=== PATIENT | male | born 1995 | race African-American/Black ===

== ENCOUNTER 2020-09-04 14:12 | Emergency (ER) | payer BC, SELFPAY ==
--- NOTE | ~2020-09-04 | XR_ITS ---
EXAMINATION: XR tibia fibula LT 2V EXAM DATE: 09/04/2020 15:42 INDICATION: Initial encounter following injury, with pain of the left calf. TECHNIQUE: Left tibia/fibula frontal and lateral projections obtained and reviewed. Correlation is ma de to left ankle obtained earlier same date. FINDINGS: Left tibial and fibular shafts unremarkable. There are no acute fractures or dislocations identified. There is no subcutaneous gas. The soft tissue is unremarkable. There are no radiopaqu e foreign bodies. IMPRESSION: 1. Left tibia fibula exam without acute osseous findings. Reviewed, dictated and finalized at location A.
--- NOTE | ~2020-09-04 | XR_ITS ---
EXAMINATION: XR foot LT min 3V, XR ankle LT min 3V EXAM DATE: 09/04/2020 14:38 INDICATION: Initial encounter following injury, with pain of the left foot, ankle. TECHNIQUE: Left foot dorsoplantar, lateral and oblique projections obtained and reviewed. Left ankle frontal, lateral and oblique projections obtained and reviewed. There is no prior study for compari son. FINDINGS: Left metatarsal bones unremarkable. The left ankle mortise appears intact. There are no acute fractures or dislocations identified. There is no subcutaneous gas. The soft tissue is unrem arkable. There are no radiopaque foreign bodies. IMPRESSION: No acute osseous findings. Reviewed, dictated and finalized at location A. IMPRESSION: No acute osseous findings. IMPRESSION: No acute osseous findings.
[2020-09-04 14:27] VITALS: BP 138/63; PULSE 110; RESP 20; TEMP 36.7; O2SAT 96
--- NOTE | 2020-09-04 15:42 | ED.GENADULT ---
HPI - General Adult General Chief complaint: Extremity Injury, Lower Stated complaint: left foot injury Time Seen by Provider: 09/04/20 15:26 Source: RN notes reviewed History of Present Illness HPI narrative: Patient presents emergency department from home for left leg pain. Patient states that this morning he jumped over a fence and landed awkwardly states that he had a burning pain in his posterior left ankle up into his left calf and has been having pain since that time patient denies any other trauma or injury denies falling or striking his head states he is taking no medication for the pain he denies any numbness or tingling in extremity Related Data Allergies Allergy/AdvReac Type Severity Reaction Status Date / Time No Known Allergies Allergy Verified 09/04/20 16:07 Review of Systems Review of Systems: Narrative: Gen.: Denies fevers or chills Musculoskeletal: See HPI Neuro: Denies numbness, tingling, weakness Skin: Denies rash Endo: Denies DM PMFSH Past Medical History Medical History (Updated 09/04/20 @ 16:30 by Manuel Ibarra DO) Patient denies significant medical history Social History Social History (Updated 09/04/20 @ 15:42 by Manuel Ibarra DO) Smoking status: Current every day smoker Exam Narrative: Exam Narrative: APPEARANCE: No acute distress, nontoxic, resting in bed Eyes: EOMI HEENT: Normocephalic, atraumatic, RESPIRATORY: No respiratory distress MUSCULOSKELETAl: Tender to palpation over the left posterior medial and lateral ankle tenderness along the Achilles heel tenderness up in the left calf no tenderness of the knee with full range of motion dorsalis pedis pulse 2+, neurovascular intact, positive Hernandez test with no movement of the foot NEURO: Awake and alert. Following commands, speech normal, no focal deficits SKIN:: Warm, dry. Normal Color no rash or lesions Course Course Emergency Course: Discussed with Dr. Cantu's PA Dylan agrees with plan for splinting and follow-up as an outpatient Discussed with patient results of workup and diagnosis. Discussed need for follow-up with primary care, proper use of medication, and reasons to return to the emergency department. Patient understands and agrees to current treatment plan Vital Signs Vital signs: Vital Signs Temperature 98.0 F 09/04/20 14:27 Pulse Rate 110 H 09/04/20 14:27 Respiratory Rate 20 09/04/20 14:27 Blood Pressure 138/63 09/04/20 14:27 Pulse Oximetry 96 09/04/20 14:27 Temperature 98.0 F 09/04/20 14:27 Pulse Rate 110 H 09/04/20 14:27 Respiratory Rate 20 09/04/20 14:27 Blood Pressure 138/63 09/04/20 14:27 Pulse Oximetry 96 09/04/20 14:27 Procedures Orthopedic Splinting/Casting Injury #1: Side: left Splint: customized in ED OCL: short leg Pre-Procedure Neuro Vascular Exam: normal Post-Procedure Neuro Vascular Exam: normal Other Orthopedic Equipment: crutches Medical Decision Making Vital Signs Vital Signs: Vital Signs Temperature 98.0 F 09/04/20 14:27 Pulse Rate 110 H 09/04/20 14:27 Respiratory Rate 20 09/04/20 14:27 Blood Pressure 138/63 09/04/20 14:27 Pulse Oximetry 96 09/04/20 14:27 Temperature 98.0 F 09/04/20 14:27 Pulse Rate 110 H 09/04/20 14:27 Respiratory Rate 09/04/20 14:27 Blood Pressure 138/63 09/04/20 14:27 Pulse Oximetry 96 09/04/20 14:27 Imaging Data Radiologist's impression: ITS Impressions Ankle X-Ray 09/04/20 14:43 IMPRESSION: No acute osseous findings. Foot X-Ray 09/04/20 14:43 IMPRESSION: No acute osseous findings. Tibia/Fibula X-Ray 09/04/20 15:45 IMPRESSION: 1. Left tibia fibula exam without acute osseous findings. Discharge Plan Discharge Clinical Impression: Rupture of left Achilles tendon Patient Disposition: Home, Self-Care Condition: Stable Instructions: Antibiotic Form, Achilles Tendon Rupture (ED) Ad
[2020-09-04] MEDS: IBUPROFEN 600 MG TABLET PO (16:12)
[2020-09-04] MEDS: HYDROcodone/acetaminophen (*CRX) 5-325 MG TABLET 1 TAB PO (16:14)
--- NOTE | 2020-09-22 21:10 | PC.NURSE ---
It was inadvertently charted that the patient has a short arm posterior splint placed when pt actually had a short leg posterior splint placed by ED techs on 09/04/20 @ 1632.
== END 2020-09-04 16:46 | disposition home or self-care (01) ==
LOC: ANHED 16:42
PROVIDERS: Emergency Provider Emergency Medicine
DX: S86.012A Strain of left Achilles tendon, initial encounter (principal); F17.200 Nicotine dependence, unspecified, uncomplicated; X50.9XXA Other and unspecified overexertion or strenuous movements or postures, initial encounter
CPT/HCPCS: 29515; 73590; 73610; 73630; 99284; A9270

== ENCOUNTER 2021-09-14 00:10 | Emergency (ER) | payer BC, SELFPAY ==
[2021-09-14 00:14] VITALS: BP 137/89; PULSE 95; RESP 18; TEMP 36.2; O2SAT 98
--- NOTE | 2021-09-14 01:01 | ED.URI ---
HPI - URI/Sore Throat General Chief Complaint: Upper Respiratory Infection Stated Complaint: URI Symptoms Time Seen by Provider: 09/14/21 01:00 History of Present Illness HPI Narrative: Pt c/o cough, productive, yellowish-greenish sputum, nasal congestin, fatigue, ear ache, and sorethroat x 1 week. Pt states he was seen at an urgent care 1 week ago, tested negative for COVID, was given amoxicillin. Patient denies any fever, chest pain, shortness of breath, abdominal pain, nausea, vomiting or diarrhea. Related Data Home Medications Medication Instructions Recorded Confirmed dextromethorphan-guaifenesin 10 ml PO 09/14/21 mg-200 mg/15 mL oral liquid Allergies Allergy/AdvReac Type Severity Reaction Status Date / Time No Known Allergies Allergy Verified 09/14/21 02:03 Review of Systems Review of Systems: Per HPI All systems reviewed & are unremarkable except as noted in HPI and below PMFSH Past Medical History Medical History Patient denies significant medical history Family History Family History Mother Patient's mother is in good health Father Patient's father is in good health Other Diabetes mellitus Hypertension Social History Social History Smoking status: Current every day smoker Exam Const: General: cooperative, healthy appearing, comfortable, no acute distress, well developed, alert and awake; No confusion Orientation/consciousness: oriented to person, oriented to place, oriented to time, patient oriented x3 and No confusion Limitations: no limitations HENMT: Head: normal to inspection, normocephalic and atraumatic Ears: hearing grossly normal bilaterally, TM normal on the right and TM normal on the left General nose exam: Normal external nose present, Normal nares present and No nasal discharge present Face and sinus: normal facial exam Mouth: Yes Normal oral and palatal mucosa present, Yes lip normal, Yes tongue normal and Yes oropharynx normal Throat: posterior oropharynx normal, tonsils normal and uvula midline Eyes: General: appearance normal, both eyes and all related structures Pupils: Equal, round and reactive pupils present EOM: EOMs intact bilaterally Neck: Neck: normal visual inspection, full ROM, no lymphadenopathy and no meningeal signs Chest: Chest palpation & inspection: normal inspection of the chest Resp: Effort & Inspection: normal respiratory effort, able to speak in complete sentences, no respiratory distress and not tachypneic Auscultation: clear to auscultation bilaterally, no crackles, no rales, no rhonchi and no wheezes Cardio: Rate: regular rate Rhythm: regular rhythm GI: Inspection: normal to inspection GI Palp: No abdominal tenderness, Yes Soft to palpation, No Tenderness to palpation present (GI), No Guarding due to palpation present (GI), No Rigid due to palpation and No Rebound tenderness present Auscultation: normal bowel sounds : General: Yes no CVA tenderness Back/Spine/Pelvis: Back: no CVA tenderness Skin: General skin exam: normal color, no rashes or lesions noted, elasticity normal and turgor normal Neuro: General: oriented to person, oriented to place, oriented to time, patient oriented x3, tone normal, moves all extremities, Normal light touch and pain sensation, no meningeal signs, no focal motor deficits, CN's II-XI intact bilaterally and No confusion Cranial nerves: Yes Equal, round and reactive pupils present Speech: No Abnormal speech present Sensory Exam: No Sensory deficit (Neuro) Extrem: General: normal to inspection, full ROM and capillary refill normal Psych: Appearance: grossly normal and well kempt Mental Status: mental status grossly normal Speech and movement: Normal speech and movement present Affect: normal affect Attitude: cooperative Thought proces
[2021-09-14 01:35] VITALS: O2SAT 98
[2021-09-14 03:18] VITALS: BP 135/93; PULSE 83; RESP 18; O2SAT 100
[2021-09-14 04:34] LABS: Influenza A QL RT-PCR Negative (Negative); Influenza B QL RT-PCR Negative (Negative); SARS-CoV-2 RNA PCR Negative
[2021-09-14 04:40] VITALS: BP 135/86; PULSE 83; RESP 18; O2SAT 100
== END 2021-09-14 04:40 | disposition home or self-care (01) ==
PROVIDERS: Emergency Provider Emergency Medicine
DX: J06.9 Acute upper respiratory infection, unspecified (principal); F17.200 Nicotine dependence, unspecified, uncomplicated; Z20.822 Contact with and (suspected) exposure to COVID-19
CPT/HCPCS: 87502; 99283; C9803; U0003; U0005

== ENCOUNTER 2024-09-07 22:26 | Emergency (ER) | payer SELFPAY ==
--- NOTE | ~2024-09-07 | XR_ITS ---
EXAMINATION: XR chest 1V portable Exam Date/Time: 09/07/2024 23:05 CDT HISTORY: bronchitis Comparison: None. RESULT: Lines, tubes, and devices: None. Lungs and pleura: Clear. Cardiomediastinal silhouette: Normal. Other: No acute osseous or upper abdominal finding. IMPRESSION: No acute cardiopulmonary process. Reviewed, dictated and finalized at location K.
--- OUTSIDE RECORDS SUMMARY | 2024-09-07 22:28 | XMS_ITS | Clinical Summary ---
Author Organization [facility] Address [address] [place] [id number] Care Team Providers Care Portfolio Consultant Name Role Phone None, Provider MD Primary Care Provider Unavaila ble Medications cyclobenzaprine 10 MG tablet 12/23/2019 Active naproxen 500 MG tablet 12/23/2019 Active Social History Tobacco Use Types Packs/Day Years Used Date Smoking Tobacco: Never Assessed Sex and Gender Information Value Date Recorded Sex Assigned at Not on file Legal Sex Male 12:16 PM CDT Gender Identity Not on file Sexual Orientation Not on file Plan of Treatment Health Maintenance Due Date Last Done Comments Annual Physical 11/25/1998 Hepatitis C 11/25/2013 DTaP, Tdap and Td Vaccines ( 1 - Tdap) 11/25/2014 Hepatitis B Vaccines (1 of 3 - 19+ 3-dose series) 11/25/2014 COVID-19 Vaccine (2023-2 5 season) 2023 HPV Vaccines Aged Out No longer eligi ble based on patient's age to complete this topic Meningococcal B Vaccine Aged Out No l onger eligible based on patient's age to complete this topic Meningococcal Vaccine Aged Out No albino charles eligible based on patient's age to complete this topic Pneumococcal Vaccine: Pediat rics (0 to 5 Years) and At-Risk Patients (6 to 49 Years) Aged Out No longer eligible b ased on patient's age to complete this topic RSV Immunizations Under 20 Months Aged Out No longer eligible based on patient's age to complete this topic Insurance [facility] Care Teams Portfolio Consultant Relationship Specialty Start Date End Date None, Provider, PCP - General 12/25/19
--- OUTSIDE RECORDS SUMMARY | 2024-09-07 22:28 | XMS_ITS | Clinical Summary ---
Author Organization [facility] Address [address] [place] [address] Care Team Providers Care Dental Technician Instructor Name Role Phone Unavailable Primary Care Provider Unavailabl e Source Comments [facility],non-owned Affiliates and Associated Physician Practices is amultiple site organization consisting of ambulatory clinics and hospital sitesin [place], [place], [place] and [place]. This disclosure is being madepursuant to the Care Everywhere program and may not contain all information available regarding this patient. Last updated 18.[facility] Allergies No known active allergies Medications * Be aware that medications may not be up to date on this document. Alwaysverify current medications with the patient. ibuprofen (MOTRIN) 600 MG tablet Take by mouth every 6 hours as needed 09/04/2020 Active cyclobenzaprine (FLEXERIL) 10 MG tablet Take 1 (one) tablet by mouth 3 times daily as needed for Muscle Spasms 30 tablet 10/03/2021 Active Social History Tobacco Use Types Packs/Day Years Used Date Smoking Tobacco: Never Assessed Sex and Gender Information Value Date Recorded Sex Assigned at Not on file Legal Sex Male 8:41 AM CDT Gender Identity Not on file Sexual Orientation Not on file Last Filed Vital Signs Vital Sign Reading Time Taken Comments Blood Pressure 126/94 10/03/2021 9:11 AM CDT Pulse 94 10/03/2021 9:11 AM CDT Temperature 37.1 C (98.7 F) 10/03/2021 9:11 AM CDT Respiratory Rate 16 10/03/2021 9:11 AM CDT Oxygen Saturation 100% 10/03/2021 9:11 AM CDT Inhaled Oxygen Concentration - - Weight 111.1 kg (245 lb) 10/03/2021 9:11 AM CDT Height 180.3 cm (5' 11 ) 10/03/2021 9:11 AM CDT Body Mass Index 34.17 10/03/2021 9:11 AM CDT Plan of Treatment Health Maintenance Due Date Last Done Comments HIV SCREENING 11/25/2010 HEPATITIS C SCREENING 11/21/2013 DTAP/TDAP/TD VACCINES (1 - Tdap) 11/25/2014 HEPATITIS B VACCINE (1 of 3 - 19+ 3-dose series) 11/25/2014 COVID-19 VACCINE (1 - 2023-2 5 season) 2023 DEPRESSION SCREENING 04/22/2024 INFLUENZA VACCINE (Season Ended) 2024 ZOSTER VACCINE (1 of 2) 11/25/2045 HIB VACCINE Aged Out No longer eligi ble based on patient's age to complete this topic HPV VACCINE Aged Out No longer eligi ble based on patient's age to complete this topic MENINGOCOCCAL (Group B) VACC INE SHARED DECISION-MAKING Aged Out No longer eligibl e based on patient's age to complete this topic MENINGOCOCCAL GROUPS A/C/Y/W VACCINE Aged Out No longer eligible b ased on patient's age to complete this topic PNEUMOCOCCAL VACCINE Aged Out No long er eligible based on patient's age to complete this topic [place] [address] [place] [id number]
--- OUTSIDE RECORDS SUMMARY | 2024-09-07 22:28 | XMS_ITS | Continuity of Care Document ---
Author Organization [facility] Address [address] [place] [address] Phone Care Team Providers Care Seismology Teacher Name Role Phone Alyssa PT, TOMYM, Ivelisse Unavailable Unavailable Procedures Procedure Date Neuromuscular Re-Ed Therapeutic Exercise Therapeutic Activities Therapeutic Exercise Neuromuscular Re-Ed PT Re-evaluation Therapeutic Activities Therapeutic Activities Neuromuscular Re-Ed Manual Therapy Therapeutic Exercise Therapeutic Exercise Neuromuscular Re-Ed Therapeutic Activities Manual Therapy PT Evaluation Low Complexity Therapeutic Exercise Neuromuscular Re-Ed Advance Directives Directive Yes / No Effective Date File Name No Information Encounters Encounter Description Practice Location Reason(s) For Visit Diagnoses Date Provider Providers Copied on Encounter [facility], [place], [place], [id number], [place] tel:[phone] [place] No Information 1 Alyssa Oviedo. . [facility], [place], [place], [id number], [place] tel:[phone] [place] No Information 1 Alyssa O[place]o. . [facility], [place], [place], [id number], tel:[phone] [place] No Information 1 Alyssa O[place]o. . [facility], [place], [place], [id number], tel:[phone] [place] No Information 1 Alyssa [place]o. . [facility], [place], [place], [id number], tel:[phone] [place] No Information 1 Alyssa O[place]o. . [facility], [place], [place], [id number], tel:[phone] [place] No Information 1 Alyssa Ov[place]o. . Family History Family Member Type Diagnosis Age At Onset No Information Payers Payer name Insurance type Covered democrat ID Laurent lopez(s) [facility] [id number] Social History Type Description Quantity Date Captured Comments Sex Male Smoking Status No Information Chief Complaint And Reason For Visit No Information Reason For Referral Reason For Referral No Information Plan Of Treatment Date Type Action Status Referral Ordered: Weight management: Referral to physician timeframe: 1 Month. (related to Overweight) ordered Referral Ordered: PCP timeframe: 1 week. (related to Overweight) ordered History Of Present Illness Encounter Date Complaint History Of Prese nt Illness No Information Functional Status Date Functional Assessmen t No Information Instructions Date Instruction Additional Infor mation No Information Assessments Type Assessment Date No Information Patient Care Teams Name Effective Dates (start - stop) Status Members No Information
[2024-09-07 22:30] VITALS: BP 134/112; PULSE 110; RESP 19; TEMP 37; O2SAT 100
--- NOTE | 2024-09-07 23:19 | ED_ITS ---
HPI - URI/Sore Throat General Chief Complaint: Upper Respiratory Infection Stated Complaint: Cough, sinus congestion, body aches Time Seen by Provider: 09/07/24 23:14 History of Present Illness HPI Narrative: 28-year-old male with reported history of hypertension needs to emergency depar tment for productive cough, congestion, otalgia, body aches for the past week. Patient reports history of bronchitis and states this feels similar. He reports pain and fullness to his left ear. Reports subjective fevers. Has been taking TheraFlu, Yissel and Flonase at home without improvement. Related Data Home Medications Medication Instructions Recorded Confirmed Last Taken Type dextromethorphan-guaifenesin 10 ml PO 09/14/21 Unknown History mg-200 mg/15 mL oral liquid Allergies Allergy/AdvReac Type Severity Reaction Status Date / Time No Known Allergies Allergy Verified 09/07/24 22:27 Review of Systems Review of Systems: All systems reviewed & are unremarkable except as noted in HPI and below PMFSH Past Medical History Medical History Patient denies significant medical history Family History Family History Mother Patient's mother is in good health Father Patient's father is in good health Other Diabetes mellitus Hypertension Social History Social History Smoking status: Current every day smoker Second hand tobacco smoke exposure: No Alcohol intake: current Exam Narrative: GENERAL: Well-appearing, well-nourished, and in no acute distress. HEAD: Normocephalic, atraumatic. EYES: EOMI. ENT: Nares clear, no rhinorrhea or epistaxis. Mucous membranes moist. Bilateral TMs are norwood nonbulging with normal canals. No pain with movement of or colds. No tenderness to mastoids. Posterior pharynx erythema or edema, no tonsillar exudates, no uvular hydrops, no unilateral tonsillar hypertrophy NECK: Supple. CHEST: Clear to auscultation. No respiratory distress. HEART: Regular rate and rhythm. No murmur heard. Normal peripheral pulses. ABDOMEN: Soft, nontender, nondistended, normal active bowel sounds. EXTREMITIES: Normal range of motion. No edema. SKIN: Warm, dry, no rash. NEURO: No focal deficits. Alert and oriented x3 Course Vital Signs Vital signs: Vital Signs Temperature 98.6 F 09/07/24 22:30 Pulse Rate 110 H 09/07/24 22:30 Respiratory Rate 19 09/07/24 22:30 Blood Pressure 134/112 H 09/07/24 22:30 Pulse Oximetry 100 09/07/24 22:30 Oxygen Delivery Room Air 09/07/24 22:30 Temperature 98.6 F 09/07/24 22:30 Pulse Rate 110 H 09/07/24 22:30 Respiratory Rate 19 09/07/24 22:30 Blood Pressure 134/112 H 09/07/24 22:30 Pulse Oximetry 100 09/07/24 22:30 Oxygen Delivery Room Air 09/07/24 22:30 MDM - URI/Sore Throat MDM Narrative Medical decision making narrative: 28-year-old male with reported history of hypertension presents to the emergency department for URI symptoms for the past week. Triage vitals with a hypertension and tachycardia 110. Patient is afebrile and nontoxic appearing resting comfortably in exam bed. Exam significant the above. Chest x-ray shows no acute cardiopulmonary findings. Viral swabs are negative. Patient updated on results. He is resting comfortably in exam bed on re- evaluation. Suspect viral bronchitis. Will start him on prednisone and Tessalon Perles. He has an albuterol inhaler and Flonase at home which I heard him to use p.r.n.. Will also trial him on Zyrtec. Advised follow-up with PCP and discussed strict ED return precautions. He is agreeable with the plan verbalized understanding. Discharged in stable condition. Lab Data Labs: Lab Results 09/07/24 Range/Units 23:06 Influenza A (RT-PCR) Negative (Negative) Influenza B (RT-PCR) Negative (Negative) RSV (RT-PCR) Negative (Negative) SARS-CoV-2 RNA (RT-PCR) Negative (Negative) Discharge Plan Discharge Clinical Impression: Bronchitis Patient Disposition: Home Condition: Stable Instructions: Antibiotic Form, Acute Bronchitis (ED) Additional Instructions: Please use your albuterol inhaler and Flonase as directed. Take the prednisone, Tessalon Perles and Zyrtec as directed. Follow-up closely with the primary care provider referred you to. Return to the emergency department if you develop any new or worsening symptoms Patient Language: Upper Sorbian Prescriptions: New benzonatate 200 mg capsule 200 mg PO BID PRN (Reason: cough) Qty: 14 0RF prednisone 20 mg tablet 40 mg PO DAILY Qty: 10 0RF cetirizine 10 mg capsule 10 mg PO DAILY PRN (Reason: allergy symptoms) Qty: 14 0RF No Action Daytime Mucus Relief DM 10-200 mg/15 mL Liquid PO Follow-up/Referrals: PHYSICIAN,DRY JANITOR [Primary Care Provider] - Paul Weller MD [Physician] -
--- OUTSIDE RECORDS SUMMARY | 2024-09-07 23:30 | XMS_ITS | Clinical Summary ---
Author Organization [facility] Address [address] [place] [address] Care Team Providers Care Appeals And Generalist Clerk Name Role Phone Unavailable Primary Care Provider Unavailabl e Source Comments [facility],non-owned Affiliates and Associated Physician Practices is amultiple site organization consisting of ambulatory clinics and hospital sitesin [place], [place], [place] and [place]. This disclosure is being madepursuant to the Care Everywhere program and may not contain all information available regarding this patient. Last updated 18.[facility] Allergies No known active allergies Medications * [...] patient's age to complete this topic [place] [address] [place] [id number]
--- OUTSIDE RECORDS SUMMARY | 2024-09-07 23:30 | XMS_ITS | Clinical Summary ---
Author Organization [facility] Address [address] [place] [address] Care Team Providers Care Moisture Conditioner Operator Name Role Phone None, Provider MD Primary [...] patient's age to complete this topic Insurance [facility] Care Teams Moisture Conditioner Operator Relationship Specialty Start Date End Date None, Provider, PCP - General 12/25/19
--- OUTSIDE RECORDS SUMMARY | 2024-09-07 23:30 | XMS_ITS | Referral Summary ---
Author Organization [facility] [place] [address] Address [address] [place] [address] Care Team Providers Care Biofuels Plant Construction Worker Name Role Phone No, Physician Primary Care Provider [phone] Ron Jiménez Unavailable [phone] Allergies No known active allergies Medications cyclobenzaprine (FLEXERIL) 5 mg tablet TAKE 1 TABLET BY MOUTH AT BEDTIME NEEDED FOR MUSCLE SPASMS 07/20/2020 Active ibuprofen (ADVIL,MOTRIN) 600 mg tablet Take by mouth every 6 (six) hours as needed 09/04/2020 Active Active Problems Problem Noted Date Diagnosed Date Achilles rupture, left 09/09/2020 Social History Tobacco Use Types Packs/Day Years Used Date Smoking Tobacco: Every Day Sex and Gender Information Value Date Recorded Sex Assigned at Not on file Legal Sex Male 11:15 AM CDT Gender Identity Not on file Sexual Orientation Not on file Last Filed Vital Signs Vital Sign Reading Time Taken Comments Blood Pressure 134/83 11/21/2020 9:12 AM CDT Pulse 54 11/21/2020 9:12 AM CDT Temperature 36.4 C (97.6 F) 09/14/2020 7:01 PM CDT Respiratory Rate 20 09/14/2020 7:01 PM CDT Oxygen Saturation 92% 09/14/2020 7:01 PM CDT Inhaled Oxygen Concentration - - Weight 114.3 kg (252 lb) 11/21/2020 9:12 AM CDT Height 180.3 cm (5' 11 ) 11/21/2020 9:12 AM CDT Body Mass Index 35.15 11/21/2020 9:12 AM CDT Plan of Treatment Not on file Medical Devices Implanted Type Area Applications Analyst Device Identifier Shelf Expiration Date Model / Serial / Lot [employer] [id number] Achilles Speedbridge [employer] Midsubstance System Fixation - [id number] Implanted:Qty: 1 on 09/14/2020 by Luisito Fraser MD at [facility] Left: Achilles Tendon [employer] 11/20/2023 [id number] / / [id number] Insurance [facility] Care Teams Biofuels Plant Construction Worker Relationship Specialty Start Date End Date No, Physician PCP - General 03/12/19 Ron Jiménez PA [address] [place] [address] [address] [place] [address] Physician Mortgage Protection Specialist Orthopedic Surgery 09/14/20
--- OUTSIDE RECORDS SUMMARY | 2024-09-07 23:30 | XMS_ITS | Continuity of Care Document ---
Author Organization [facility] Address [address] [place] [address] Phone Care Team Providers Care Middleware Consultant Name Role Phone Alyssa PT, TOMMY, Ivelisse Unavailable Unavailable Procedures Procedure Date Neuromuscular Re-Ed Therapeutic Exercise Therapeutic Activities Neuromuscular Re-Ed PT Re-evaluation Therapeutic Activities Therapeutic Exercise Neuromuscular Re-Ed Therapeutic Activities Therapeutic Exercise Manual Therapy Therapeutic Exercise Manual Therapy Therapeutic Activities Neuromuscular Re-Ed PT Evaluation Low Complexity Neuromuscular Re-Ed Therapeutic Exercise Advance Directives Directive Yes / No Effective Date File Name No Information Encounters Encounter Description Practice Location Reason(s) For Visit Diagnoses Date Provider Providers Copied on Encounter [facility] [employer], [place], [place], [id number], [place] tel:[phone] [place] No Information 1 Alyssa [place]. . [facility], [place], [place], [id number], [place] tel:[phone] [place] No Information 1 Alyssa [place]. . [facility], [place], [place], [id number], tel:[phone] [place] No Information 1 Alyssa [place]. . [facility], [place], [place], [id number], tel:[phone] [place] No Information 1 Alyssa [place]. . [facility], [place], [place], [id number], tel:[phone] [place] No Information 1 Alyssa [place]. . [facility], [place], [place], [address], tel:[phone] [place] No Information 1 Alyssa [place]. . Family History Family Member Type Diagnosis Age At Onset No Information Payers Payer name Insurance type Covered constitution party ID Laurent lopez(s) [facility] [id number] Social History Type Description Quantity Date Captured [...]
--- OUTSIDE RECORDS SUMMARY | 2024-09-07 23:30 | XMS_ITS | Clinical Summary ---
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 Name Role Phone No, Physician Primary Care Provider [phone] Ron Jiménez Unavailable [phone] Allergies No known active allergies Medications cyclobenzaprine (FLEXERIL) 5 mg tablet TAKE 1 TABLET BY MOUTH AT BEDTIME NEEDED FOR MUSCLE SPASMS 07/20/2020 Active ibuprofen (ADVIL,MOTRIN) 600 mg tablet Take by mouth every 6 (six) hours as needed 09/04/2020 Active Active Problems Problem Noted Date Diagnosed Date Achilles rupture, left 09/09/2020 Medical History Medical History Date Comments GERD (gastroesophageal reflux disease) Family History Medical History Relation Name Comments Hypertension Other Relation Name Status Comments Other Social History Tobacco Use Types Packs/Day Years Used Date Smoking Tobacco: Every Day Sex and Gender Information Value Date Recorded Sex Assigned at Not on file Legal Sex Male 11:15 AM CDT Gender Identity Not on file Sexual Orientation Not on file Obstetrics History Last Filed Vital Signs Vital Sign Reading [...] on file Medical Devices Implanted Type Area Farm Products Shipper Device Identifier Shelf Expiration Date Model / Serial / Lot [employer] [id number] Achilles Speedbridge [employer] Midsubstance System Fixation - [id number] Implanted:Qty: 1 on 09/14/2020 by Luisito Fraser MD at [facility] Left: Achilles Tendon [employer] 11/20/2023 [id number] / / [id number] Insurance [facility] Care Teams Cast Iron Drain Pipe Layer Relationship Specialty Start Date End Date No, Physician PCP - General 03/12/19 Ron Jiménez PA [address] [place] [address] [address] [place] [address] Physician Senior Chemist Orthopedic Surgery 09/14/20
[2024-09-07 23:45] VITALS: BP 122/94; PULSE 91; RESP 15; O2SAT 100
[2024-09-07 23:48] LABS: Influenza A QL RT-PCR Negative (Negative); Influenza B QL RT-PCR Negative (Negative); RSV RNA, RT-PCR Negative (Negative); SARS-CoV-2 RNA PCR Negative (Negative)
[2024-09-07 23:58] VITALS: O2SAT 97
[2024-09-08 01:06] VITALS: PULSE 90; RESP 16; O2SAT 100
== END 2024-09-08 01:11 | disposition home or self-care (01) ==
PROVIDERS: Emergency Medicine; Emergency Provider Physician Assistant
DX: J40 Bronchitis, not specified as acute or chronic (principal); Z20.822 Contact with and (suspected) exposure to COVID-19; I10 Essential (primary) hypertension; F17.200 Nicotine dependence, unspecified, uncomplicated
CPT/HCPCS: 71045; 87637; 99283